=== PATIENT | male | born 1955 | race Caucasian/White ===

== ENCOUNTER 2017-09-30 20:31 | Emergency (ER) | payer OTHER ==
--- NOTE | 2017-09-30 20:53 | PDOC ---
Rapid Medical Evaluation Time Seen by Provider: 09/30/17 20:53 Medical Evaluation: Allergies Allergy/AdvReac Type Severity Reaction Status Date / Time No Known Allergies Allergy Verified 02/22/14 16:19 09/30/17 20:54 62 year old male with prior visits for dizziness in 2011 and 2013, history of anxiety, presenting with dizziness today. Took BP at a gym today and found it to be in the 190s systolic. No headaches or chest pain. BP 163/111. Alert, oriented, no distress. RRR, S1/S2. Lungs CTAB. No gross neurologic deficits. EKG CXR Basic labs To Main ED for further evaluation
[2017-09-30 20:57] VITALS: BP 163/111; PULSE 85; TEMP 98.3; BMI 25.1
[2017-09-30 22:07] LABS: EOS % 4.7 % (0-4.5); HEMATOCRIT 44.4 % (35.4-49); HEMOGLOBIN 14.7 GM/dL (11.7-16.9); LYMPH % 23.7 % (8-40); MCH 29.6 pg (25.7-33.7); MEAN CELL VOLUME 89.7 fl (80-96); MEAN PLT VOLUME 8.6 fl (7.5-11.1); MONO % 9.6 % (3.8-10.2); PLATELET COUNT 175 K/MM3 (134-434); RBC 4.95 M/mm3 (4.00-5.60); RDW 13.3 % (11.9-15.9); WHITE BLOOD COUNT 9.4 K/mm3 (4.0-10.0)
[2017-09-30 22:31] LABS: ALBUMIN 3.9 g/dl (3.4-5.0); ALK PHOS 109 U/L (45-117); ANION GAP 5 (8-16); BILIRUBIN,TOTAL 0.3 mg/dL (0.2-1.0); BLOOD UREA NITROGEN 23 mg/dL (7-18); CALCIUM 8.4 mg/dL (8.5-10.1); CHLORIDE 108 mmol/L (98-107); CO2 29 mmol/L (21-32); CREATININE 1.5 mg/dL (0.7-1.3); GLUCOSE,RANDOM 97 mg/dL (74-106); POTASSIUM 4.1 mmol/L (3.5-5.1); SGOT/AST 20 U/L (15-37); SGPT/ALT 25 U/L (12-78); SODIUM 142 mmol/L (136-145); TOT PROT 6.6 g/dl (6.4-8.2)
[2017-10-01 00:44] LABS: URINE APPEARANCE CLEAR; URINE BILIRUBIN NEGATIVE (<2.0 mg/dL); URINE BLOOD NEGATIVE (NEGATIVE); URINE COLOR LTYELLOW; URINE GLUCOSE (UA) NEGATIVE (NEGATIVE); URINE KETONE NEGATIVE (NEGATIVE); URINE LEUK ESTERASE NEGATIVE (NEGATIVE); URINE NITRITE NEGATIVE (NEGATIVE); URINE PROTEIN NEGATIVE (NEGATIVE); URINE UROBILINOGEN NEGATIVE mg/dL (0.2-1.0)
--- NOTE | 2017-10-01 01:37 | PDOC ---
History of Present Illness <Hayden Weiner - Last Filed: 10/01/17 02:32> - History of Present Illness Initial Comments: 10/01/17 02:50 The patient is a 62 year old male with no significant PMH who presents to the emergency department after noting an elevated blood pressure reading at the gym. The patient reports intermittent lightheadedness with episodes lasting a few seconds, which he states has been recurring for years. Last episode he states was 2-3 hours ago. The patient notes he follows with a PCP regularly who has noted high blood pressure readings in the past, but reports he has never been started on HTN medications. The patient reports he works out three times a week in spin classes, but notes they do not trigger dizziness, lightheadedness or any sxs. The patient denies fevers and chills. He denies blurry vision or double vision. He denies weakness and numbness. Pt has PMD appointment with Dr. Augustin on Monday 10/02. The patient denies chest pain, shortness of breath, and headache. Denies nausea, vomit, diarrhea, and constipation. Denies dysuria, frequency, urgency, and hematuria. Allergies: NKA Past surgical history: None reported. Social history: No reported cigarette, alcohol, or drug use. PCP: Dr. Augustin <Lila Saldivar - Last Filed: 10/01/17 02:56> - General Chief Complaint: Blood Pressure Problem Stated Complaint: LIGHTHEADED Time Seen by Provider: 09/30/17 20:53 Past History <Hayden Weiner - Last Filed: 10/01/17 02:32> - Past Medical History COPD: No - Suicide/Smoking/Psychosocial Hx Smoking Status: No Smoking History: Never smoked Number of Cigarettes Smoked Daily: 0 Hx Alcohol Use: No <Lila Saldivar - Last Filed: 10/01/17 02:56> - Past Medical History Allergies/Adverse Reactions: Allergies Allergy/AdvReac Type Severity Reaction Status Date / Time No Known Allergies Allergy Verified 09/30/17 20:54 Home Medications: Ambulatory Orders No Home Medications 0 dose .ROUTE UTDICT 12/03/11 Review of Systems - Review of Systems Comments:: 10/01/17 02:50 GENERAL/CONSTITUTIONAL: No fever or chills. No weakness. HEAD, EYES, EARS, NOSE AND THROAT: No change in vision. No ear pain or discharge. No sore throat. GASTROINTESTINAL: No nausea, vomiting, diarrhea or constipation. GENITOURINARY: No dysuria, frequency, or change in urination. CARDIOVASCULAR: No chest pain or shortness of breath. RESPIRATORY: No cough, wheezing, or hemoptysis. MUSCULOSKELETAL: No joint or muscle swelling or pain. No neck or back pain. SKIN: No rash NEUROLOGIC: No headache, vertigo, loss of consciousness, or change in strength/ sensation. ENDOCRINE: No increased thirst. No abnormal weight change. HEMATOLOGIC/LYMPHATIC: No anemia, easy bleeding, or history of blood clots. ALLERGIC/IMMUNOLOGIC: No hives or skin allergy. <Lila Saldivar - Last Filed: 10/01/17 02:56> *Physical Exam - Vital Signs Last Vital Signs Temp Pulse Resp BP Pulse Ox 98.3 F 85 17 163/111 98 09/30/17 20:55 09/30/17 20:55 09/30/17 20:55 09/30/17 20:55 09/30/17 20:55 <Hayden Weiner - Last Filed: 10/01/17 02:32> - Vital Signs Last Vital Signs Temp Pulse Resp BP Pulse Ox 98.3 F 85 17 163/111 98 09/30/17 20:55 09/30/17 20:55 09/30/17 20:55 09/30/17 20:55 09/30/17 20:55 - Physical Exam Comments: 10/01/17 02:52 GENERAL: Awake, alert, and fully oriented, in no acute distress HEAD: No signs of trauma EYES: PERRLA, EOMI, sclera anicteric, conjunctiva clear ENT: Auricles normal inspection, hearing grossly normal, nares patent, oropharynx clear without exudates. Moist mucosa NECK: Normal ROM, supple, no lymphadenopathy, JVD, or masses LUNGS: Breath sounds equal, clear to auscultation bilaterally. No wheezes, and no crackles HEART: Regular rate and rhythm, normal S1 and S2, no murmurs, rubs or gallops ABDOMEN: Soft, nontender, normoactive bowel sounds. No guarding, no rebound. No masses EXTREMITIES: Normal range of motion, no edema. No clubbing or cyanosis. No cords, erythema, or tenderness NEUROLOGICAL: Normal speech, cranial nerves intact, negative pronator drift, 5/ 5 strength in all 4 extremities, normal sensation to light touch in all 4 extremities, normal cerebellar exam, normal gait, normal reflexes and tone SKIN: Warm, Dry, normal turgor, no rashes or lesions noted. Orthostatics negative. <Lila Saldivar - Last Filed: 10/01/17 02:56> Moderate Sedation - Procedure Monitoring Vital Signs: Vital Signs Temp Pulse Resp BP Pulse Ox 98.3 F 85 17 163/111 98 09/30/17 20:55 09/30/17 20:55 09/30/17 20:55 09/30/17 20:55 09/30/17 20:55 <Hayden Weiner - Last Filed: 10/01/17 02:32> - Procedure Monitoring Vital Signs: Vital Signs Temp Pulse Resp BP Pulse Ox 98.3 F 85 17 163/111 98 09/30/17 20:55 09/30/17 20:55 09/30/17 20:55 09/30/17 20:55 09/30/17 20:55 <Lila Saldivar - Last Filed: 10/01/17 02:56> Heart Score/ECG Review #1 ECG reviewed & interpreted by me at: 01:00 10/01/17 02:53 Twelve-lead EKG was performed and reviewed by me. Sinus rhythm with occasional PVC/PAC. Normal axis.+ Right bundle branch block when compared to EKG from February 2014, EKG is unchanged except for PVC/PAC <Lila Saldivar - Last Filed: 10/01/17 02:56> ED Treatment Course - LABORATORY CBC & Chemistry Diagram: 09/30/17 21:58 09/30/17 21:58 - ADDITIONAL ORDERS Additional order review: Laboratory Results 09/30/17 09/30/17 21:58 00:00 Sodium 142 Potassium 4.1 Chloride 108 H Carbon Dioxide 29 Anion Gap 5 L BUN 23 H Creatinine 1.5 H D Creat Clearance w eGFR 47.12 Random Glucose 97 Calcium 8.4 L Total Bilirubin 0.3 D AST 20 ALT 25 Alkaline Phosphatase 109 Total Protein 6.6 Albumin 3.9 Urine Color Ltyellow Urine Appearance Clear Urine pH 5.0 Ur Specific [employer] 1.016 Urine Protein Negative Urine Glucose (UA) Negative Urine Ketones Negative Urine Blood Negative Urine Nitrite Negative Urine Bilirubin Negative Urine Urobilinogen Negative Ur Leukocyte Esterase Negative 09/30/17 21:58 RBC 4.95 MCV 89.7 MCHC 33.0 RDW 13.3 MPV 8.6 Neutrophils % 61.0 Lymphocytes % 23.7 D Monocytes % 9.6 Eosinophils % 4.7 H D Basophils % 1.0 <Hayden Weiner - Last Filed: 10/01/17 02:32> - LABORATORY CBC & Chemistry Diagram: 09/30/17 21:58 09/30/17 21:58 - ADDITIONAL ORDERS Additional order review: Laboratory Results 09/30/17 09/30/17 21:58 00:00 Sodium 142 Potassium 4.1 Chloride 108 H Carbon Dioxide 29 Anion Gap 5 L BUN 23 H Creatinine 1.5 H D Creat Clearance w eGFR 47.12 Random Glucose 97 Calcium 8.4 L Total Bilirubin 0.3 D AST 20 ALT 25 Alkaline Phosphatase 109 Total Protein 6.6 Albumin 3.9 Urine Color Ltyellow Urine Appearance Clear Urine pH 5.0 Ur Specific [employer] 1.016 Urine Protein Negative Urine Glucose (UA) Negative Urine Ketones Negative Urine Blood Negative Urine Nitrite Negative Urine Bilirubin Negative Urine Urobilinogen Negative Ur Leukocyte Esterase Negative 09/30/17 21:58 RBC 4.95 MCV 89.7 MCHC 33.0 RDW 13.3 MPV 8.6 Neutrophils % 61.0 Lymphocytes % 23.7 D Monocytes % 9.6 Eosinophils % 4.7 H D Basophils % 1.0 <Lila Saldivar - Last Filed: 10/01/17 02:56> Medical Decision Making - Medical Decision Making 10/01/17 02:17 62yo M denies PMH presents to the emergency department with elevated blood pressure read at the gym. He also c/o intermittent lightheadness for years. BP here elevated to 160s/110 on repeat checks. Exam with mildly dry MM, but patient is drinking water PO. Exam completely normal otherwise. EKG is non ischemic. Labs with mild MARIBETH with botany technician 1.5 and BUN elevated to 23, possibly a touch pre-renal. In terms of elevated BP, likely hypertensive urgency. Pt has PMD appointment with Dr. Augustin on Saturday, he will have BP rechecked there and likely started on antihypertensive. With regards to lightheadedness, pt has had for years, denies any lightheadedness here in ED and is well appearing. Is not clinically orthostatic and labs/ekg wnl. Pt requests DC I discussed the physical exam findings, ancillary test results and final diagnoses with the patient. I answered all of the patient's questions. The patient was satisfied with the care received and felt comfortable with the discharge plan and treatment plan. The patient will call their primary care physician within 24 hours to arrange follow-up and will return to the Emergency Department with any new, persistent or worsening symptoms. <Lila Saldivar - Last Filed: 10/01/17 02:56> *DC/Admit/Observation/Transfer - Attestations Scribe Attestion: 10/01/17 02:32 Documentation prepared by Hayden Weiner, acting as esthetician and manager medical spa for Lila Saldivar MD. <Hayden Weiner - Last Filed: 10/01/17 02:32> - Discharge Dispostion Decision to Admit order: No - Attestations Physician Attestion: 10/01/17 02:31 I, Dr. Lila Saldivar MD, attest that this document has been prepared under my direction and personally reviewed by me in its entirety. I further attest, that it accurately reflects all work, treatment, procedures and medical decision -making performed by me. <Lila Saldivar - Last Filed: 10/01/17 02:56> Diagnosis at time of Disposition: Lightheaded, Hypertensive urgency - Discharge Dispostion Disposition: HOME Condition at time of disposition: Stable - Patient Instructions Printed Discharge Instructions: DI for High Blood Pressure Additional Instructions: Follow up with Dr. Augustin as scheduled on Saturday for your lightheadness and elevated blood pressure. Your blood pressure read here was 160/108. If it remains high when you are seen at Dr. Augustin's office, she will likely elect to start you on a blood pressure medication. Return to the emergency department if you have any new, worsening, or concerning symptoms.
--- NOTE | 2017-10-01 16:16 | EKG ---
Test Reason : Blood Pressure : / mmHG Vent. Rate : 065 BPM Atrial Rate : 065 BPM P-R Int : 150 ms QRS Dur : 146 ms QT Int : 448 ms P-R-T Axes : 037 014 -07 degrees QTc Int : 465 ms SINUS RHYTHM WITH MARKED SINUS ARRHYTHMIA WITH OCCASIONAL PREMATURE VENTRICULAR COMPLEXES RIGHT BUNDLE BRANCH BLOCK MINIMAL VOLTAGE CRITERIA FOR LVH, MAY BE NORMAL VARIANT T WAVE ABNORMALITY, CONSIDER INFERIOR ISCHEMIA ABNORMAL ECG WHEN COMPARED WITH ECG OF 22-FEB-2014 17:26, PREMATURE VENTRICULAR COMPLEXES ARE NOW PRESENT T WAVE INVERSION LESS EVIDENT IN ANTEROLATERAL LEADS Confirmed by MD Desmond, Kp ([id number]) on 10/01/2017 4:15:32 PM Referred By: Confirmed By:Kp Logan MD
--- NOTE | 2017-10-02 16:34 | EKG ---
Test Reason : Blood Pressure : / mmHG Vent. Rate : 063 BPM Atrial Rate : 063 BPM P-R Int : 154 ms QRS Dur : 146 ms QT Int : 464 ms P-R-T Axes : 045 012 002 degrees QTc Int : 474 ms SINUS RHYTHM WITH OCCASIONAL PREMATURE VENTRICULAR COMPLEXES AND PREMATURE ATRIAL COMPLEXES RIGHT BUNDLE BRANCH BLOCK MINIMAL VOLTAGE CRITERIA FOR LVH, MAY BE NORMAL VARIANT ABNORMAL ECG WHEN COMPARED WITH ECG OF 01-OCT-2017 00:54, PREMATURE ATRIAL COMPLEXES ARE NOW PRESENT Confirmed by LYRIC GREGORY MD ([id number]) on 10/02/2017 4:34:03 PM Referred By: Confirmed By:LYRIC GREGORY MD
== END 2017-10-01 02:38 | disposition home or self-care (01) ==
LOC: JER 20:31
DX: I16.0 Hypertensive urgency (principal); Z86.59 Personal history of other mental and behavioral disorders
CPT/HCPCS: 36415; 71046-TC-FY; 80053; 81003; 85025; 93005; 93010; 99281-25